=== PATIENT | male | born 1990 | race Caucasian/White ===

== ENCOUNTER 2023-11-20 10:23 | Outpatient (CLI) | payer OTHER ==
[2023-11-20 11:32] LABS: HEMOGLOBIN 15.1 g/dL (13-16.00); MEAN CELL VOLUME 83.9 fL (80.0-100.00); MEAN CORPUSCULAR HEMOGLOBIN 29.5 pg (27.00-32.0); MEAN CORPUSCULAR HGB CONC 35.2 g/dl (32.0-36.0); PLATELET COUNT 143 K/uL (150-450); RED BLOOD COUNT 5.13 M/uL (4.00-6.00); RED CELL DISTRIBUTION WIDTH 13.1 % (11.5-14.5)
[2023-11-21 07:09] LABS: HSV I IGG TYPE SPECIFIC 7.74 index (0.00-0.90)
[2023-11-21 21:05] LABS: chla t Negative (Negative); neiss Negative (Negative)
== END 2023-11-20 10:44 | disposition home or self-care (01) ==
LOC: LAB 10:23
DX: Z11.3 Encounter for screening for infections with a predominantly sexual mode of transmission (principal)